=== PATIENT | female | born 1950 | race Caucasian/White ===

== ENCOUNTER → 2016-10-22 | Outpatient (CLI) | payer MEDICARE, MEDICAID ==
--- NOTE | 2016-10-22 15:47 | MRI ---
EXAM DESCRIPTION: Lumbar Spine w/o Contrast CLINICAL HISTORY: BACK PAIN COMPARISON: None Available. TECHNIQUE: MRI of the lumbar spine is performed according to our usual protocol with axial and sagittal multi sequence imaging. FINDINGS: There is good alignment of the lumbar spine. There is no vertebral pathology. L1-2: the disc is well hydrated. There is no loss of height. There is no bulging. The facets are unremarkable with no significant hypertrophy. There is no stenosis or impingement. L2-3: Minor desiccation and narrowing of the disc. Minor annular bulging. Facets unremarkable. There is no stenosis or impingement. L3-4: Minor disc desiccation and narrowing with minimal annular bulging slightly exaggerated to the left. There is an annular tear posterolaterally on the left. Minor facet hypertrophy. There is no stenosis or impingement. L4-5: Early disc desiccation with moderate disc narrowing and broad 2 to 3 mm disc bulge with posterior central midline annular tear. Severe bilateral facet and ligament hypertrophy producing severe multifactorial spinal stenosis with the AP diameter of the canal measuring 5 to 6 mm in AP and transverse diameter. L5-S1: Early narrowing and desiccation of the disc with minor annular bulging. Posterior midline annular tear. Moderate facet arthropathy with hypertrophy. There is no stenosis or impingement. IMPRESSION: 1. Severe multifactorial spinal stenosis L4-5 2. Multilevel lumbar spondylosis as described Electronically signed by: Peng Nickerson MD 10/22/2016 3:46 PM CDT
== END | disposition home or self-care (01) ==
LOC: MRI 08:42
PROVIDERS: ATTEND Emergency Medicine
DX: M48.06 Spinal stenosis, lumbar region (principal); M47.896 Other spondylosis, lumbar region

== ENCOUNTER 2018-03-01 11:21 | Emergency (ER) | payer MEDICARE, MEDICAID ==
[2018-03-01 11:40] VITALS: TEMP 97.1
[2018-03-01] MEDS ORDERED: AMOXICILLIN & POT CLAVULANATE 875 MG TAB PO ONE (11:49)
[2018-03-01] MEDS ORDERED: TETANUS,DIPHTHERIA,PERTUSSIS 1 EA SYG IM ONE (11:49)
[2018-03-01] MEDS ORDERED: AZITHROMYCIN 250 MG TAB PO ONE (11:49)
--- NOTE | 2018-03-01 11:55 | ED.PDOC ---
History of Present Illness - General Chief Complaint: Skin/Abrasion/Tear Stated Complaint: red,swollen right arm Time Seen by Provider: 03/01/18 11:46 Source: patient Exam Limitations: no limitations - History of Present Illness Initial Comments: the patient is a 68-year-old female presenting to the emergency room secondary to cellulitis of her right dorsal forearm. Her cat bit her 2 days ago. She has extending cellulitis surrounding that. No obvious area to drain. It does not extend past the elbow at this time. No limitation of function. She did have some fever last night along with some mild nausea. No syncope or near syncope. She reports that she thinks she had a penicillin allergy as a child but she has been able to take amoxicillin in the past. She is currently undergoing chemotherapy for some form of a neck cancer. Timing/Duration: other - 48 hours Severity: moderate Improving Factors: nothing Worsening Factors: nothing Associated Symptoms: malaise Allergies/Adverse Reactions: Allergies Penicillins Allergy (Verified 03/01/18 11:40) Home Medications: Ambulatory Orders Amoxicillin & Pot Clavulanate [Augmentin Tab] 875 mg PO BID #20 tab 03/01/18 Azithromycin 250 mg PO DAILY #5 tab 03/01/18 Bacitracin (Topical) [Bacitracin] 500 unit EX DAILY 03/01/18 Carisoprodol [Soma] 350 mg PO Q6H PRN 03/01/18 Dexamethasone 20 mg PO PRN 03/01/18 Docusate Sodium [Stool Softener] 100 mg PO DAILY PRN 03/01/18 Gabapentin 300 mg PO TID 03/01/18 Meloxicam [Vivlodex] 10 mg PO DAILY 03/01/18 Methadone HCl 20 mg PO Q12H 03/01/18 Oxycodone HCl 10 mg PO Q4H PRN 03/01/18 fentaNYL PATCH 100 MCG/HR [Duragesic Patch 100 MCG/HR] 100 mcg TD Q72H 03/01/18 Review of Systems - Review of Systems Constitutional: States: fever, malaise, weakness EENTM: States: no symptoms reported Respiratory: States: no symptoms reported Cardiology: States: no symptoms reported Gastrointestinal/Abdominal: States: nausea Genitourinary: States: no symptoms reported Musculoskeletal: States: no symptoms reported Skin: States: see HPI Neurological: States: no symptoms reported Endocrine: States: no symptoms reported All other Systems: No Change from Baseline Past Medical History (General) - Patient Medical History Hx Stroke: No Hx Congestive Heart Failure: No Hx Diabetes: No Hx Hepatitis C: Yes - recently diagnosed - Vaccination History Hx Influenza Vaccination: Yes Hx Pneumococcal Vaccination: Yes - Social History Hx Tobacco Use: Yes Family Medical History - Family History Mother Family History: Unknown Living Status: Unknown Physical Exam - Physical Exam General Appearance: Alert, No apparent distress Eye Exam: bilateral normal Ears, Nose, Throat: hearing grossly normal Neck: other - chronic changes from previous surgery. She thinks there is a little more swelling to the left side of her neck over the last 2 or 3 days but she is uncertain Respiratory: lungs clear, normal breath sounds, no respiratory distress, no accessory muscle use Cardiovascular/Chest: normal peripheral pulses, no edema, other - regular rate Peripheral Pulses: radial,right: 2+, radial,left: 2+, dorsalis pedis,right: 2+, dorsalis pedis,left: 2+ Gastrointestinal/Abdominal: non tender, soft Rectal Exam: deferred Extremity: normal range of motion, no pedal edema, no calf tenderness, normal capillary refill, other - pain to the right forearm where the cellulitis is. PICC line is in place in the right upper arm. Neurologic: riveter hand II-XII nml as tested, alert, normal mood/affect, oriented x 3 Skin Exam: other - cellulitis of the right dorsal forearm. Comments: Vital Signs - 24 hr 03/01/18 11:36 Temperature 97.1 F L Pulse Rate [ 89 Left Brachial] Respiratory 16 Rate Blood Pressure 126/78 [Left Arm] O2 Sat by Pulse 94 L Oximetry Progress - Progress Progress: 03/01/18 11:56 the patient is a 68-year-old female presenting secondary to cellulitis of the right dorsal forearm where her cat bit her 2 days ago. There is no evidence of any abscess formation. She is uncertain of her tetanus status. She has been able to take amoxicillin in the past. The patient is going to be placed on Augmentin and azithromycin for the cellulitis. A blood culture is being performed in case she fails to respond to this treatment. ER warnings were given for any worsening. She does need to take these antibiotics with food to prevent stomach upset. She needs to keep herself well hydrated. ER warnings were given. I would recommend that she follow-up with her primary care doctor early next week. Departure - Departure Clinical Impression: Cat bite Qualifiers: Encounter type: initial encounter Qualified Code(s): W55.01XA - Bitten by cat, initial encounter Cellulitis Qualifiers: Site of cellulitis: extremity Site of cellulitis of extremity: upper extremity Laterality: right Qualified Code(s): L03.113 - Cellulitis of right upper limb Disposition: Discharge to Home or Self Care Condition: Fair Departure Forms: ED Discharge - Pt. Copy, Patient Portal Self Enrollment Instructions: DI for Wound Infection Diet: regular diet Activity: increase activity as tolerated Referrals: JAN HILLMAN [Primary Care Provider] - 1-5 Days Prescriptions: Amoxicillin & Pot Clavulanate [Augmentin Tab] 875 mg PO BID #20 tab Azithromycin 250 mg PO DAILY #5 tab Home Medications: Ambulatory Orders Amoxicillin & Pot Clavulanate [Augmentin Tab] 875 mg PO BID #20 tab 03/01/18 Azithromycin 250 mg PO DAILY #5 tab 03/01/18 Bacitracin (Topical) [Bacitracin] 500 unit EX DAILY 03/01/18 Carisoprodol [Soma] 350 mg PO Q6H PRN 03/01/18 Dexamethasone 20 mg PO PRN 03/01/18 Docusate Sodium [Stool Softener] 100 mg PO DAILY PRN 03/01/18 Gabapentin 300 mg PO TID 03/01/18 Meloxicam [Vivlodex] 10 mg PO DAILY 03/01/18 Methadone HCl 20 mg PO Q12H 03/01/18 Oxycodone HCl 10 mg PO Q4H PRN 03/01/18 fentaNYL PATCH 100 MCG/HR [Duragesic Patch 100 MCG/HR] 100 mcg TD Q72H 03/01/18 Additional Instructions: the patient is a 68-year-old female presenting secondary to cellulitis of the right dorsal forearm where her cat bit her 2 days ago. There is no evidence of any abscess formation. She is uncertain of her tetanus status. She has been able to take amoxicillin in the past. The patient is going to be placed on Augmentin and azithromycin for the cellulitis. A blood culture is being performed in case she fails to respond to this treatment. ER warnings were given for any worsening. She does need to take these antibiotics with food to prevent stomach upset. She needs to keep herself well hydrated. ER warnings were given. I would recommend that she follow-up with her primary care doctor early next week.
[2018-03-01 12:19] VITALS: BP 119/70; O2SAT 96
== END 2018-03-01 12:29 | disposition home or self-care (01) ==
LOC: ER 11:21
DX: S51.851A Open bite of right forearm, initial encounter (principal); L03.113 Cellulitis of right upper limb; Z23 Encounter for immunization; C76.0 Malignant neoplasm of head, face and neck; B19.20 Unspecified viral hepatitis C without hepatic coma; Z79.899 Other long term (current) drug therapy; W55.01XA Bitten by cat, initial encounter; Y92.9 Unspecified place or not applicable
CPT/HCPCS: 36415; 87040; 90471; 90715; Q0144

== ENCOUNTER 2018-05-25 19:56 | Emergency (ER) | payer MEDICARE, MEDICAID ==
--- NOTE | 2018-05-25 20:30 | RAD ---
EXAM DESCRIPTION: Chest,1 View CLINICAL HISTORY:68 years Female, left chest, neck pain, 2d after chemo Comparison: None FINDINGS: No focal lung consolidation. No pleural effusion. No pneumothorax. Cardiac and mediastinal silhouette is unremarkable. No acute osseous abnormality. Aortic calcifications. Soft tissues are unremarkable. IMPRESSION: No acute findings. No focal lung consolidation. Electronically signed by: Gal Cano MD 05/25/2018 8:29 PM CDT
[2018-05-25] MEDS ORDERED: DEXAMETHASONE INJ 10 MG/ML VIAL IM ONE (21:34)
[2018-05-25] MEDS ORDERED: cefTRIAXone SODIUM 1 GM VIAL IM ONE (21:34)
[2018-05-25] MEDS ORDERED: diazePAM 5 MG TAB PO ONE (21:34)
[2018-05-25] MEDS ORDERED: LIDOCAINE 1% 2 ML VIAL INJ ONE (21:44)
--- NOTE | 2018-05-25 22:15 | ED.PDOC ---
History of Present Illness - General Chief Complaint: Neck Injury/Pain Stated Complaint: neck pain Time Seen by Provider: 05/25/18 20:00 Source: patient Exam Limitations: no limitations - History of Present Illness Initial Comments: the patient is a 68-year-old female presenting to the emergency room secondary to couple of days of malaise along with tightening of the musculature to the left side of her neck as well as several episodes of nausea and vomiting. The patient is currently undergoing chemotherapy for cancer of the head and neck. She had her last chemotherapy treatment 2 days ago. After that she started experiencing some nausea and vomiting. No syncope. She has tolerated the majority of her oral intake over the last couple of days however. She is primarily here secondary to the neck symptoms. No altered mental status. The patient is pleasant and cooperative. She is uncertain what kind of chemotherapy she is on an uncertain if she having steroids prior or after. no fevers, sore throat, runny nose or shortness of breath. No chest pain otherwise. No syncope or near syncope. No diarrhea. Timing/Duration: unsure - 48 hours Severity: moderate Improving Factors: nothing Worsening Factors: nothing Associated Symptoms: malaise, nausea/vomiting Allergies/Adverse Reactions: Allergies Penicillins Allergy (Verified 03/01/18 11:40) Home Medications: Ambulatory Orders Amoxicillin & Pot Clavulanate [Augmentin Tab] 875 mg PO BID #20 tab 03/01/18 Azithromycin 250 mg PO DAILY #5 tab 03/01/18 Bacitracin (Topical) [Bacitracin] 500 unit EX DAILY 03/01/18 Carisoprodol [Soma] 350 mg PO Q6H PRN 03/01/18 Dexamethasone 20 mg PO PRN 03/01/18 Docusate Sodium [Stool Softener] 100 mg PO DAILY PRN 03/01/18 Gabapentin 300 mg PO TID 03/01/18 Meloxicam [Vivlodex] 10 mg PO DAILY 03/01/18 Methadone HCl 20 mg PO Q12H 03/01/18 Oxycodone HCl 10 mg PO Q4H PRN 03/01/18 fentaNYL PATCH 100 MCG/HR [Duragesic Patch 100 MCG/HR] 100 mcg TD Q72H 03/01/18 Cyclobenzaprine HCl [Flexeril] 5 mg PO TID PRN #30 tab 05/25/18 Dexamethasone 4 mg PO DAILY #3 tab 05/25/18 Levofloxacin [Levaquin] 250 mg PO DAILY #5 tablet 05/25/18 Review of Systems - Review of Systems Constitutional: States: malaise EENTM: States: no symptoms reported Respiratory: States: no symptoms reported Cardiology: States: chest pain - left upper Gastrointestinal/Abdominal: States: nausea, vomiting Genitourinary: States: no symptoms reported Musculoskeletal: States: neck pain - chronic Skin: States: no symptoms reported Neurological: States: no symptoms reported Endocrine: States: no symptoms reported All other Systems: No Change from Baseline Past Medical History (General) - Patient Medical History Hx Stroke: No Hx Congestive Heart Failure: No Hx Diabetes: No Hx Cancer: Yes - neck/head Hx Hepatitis C: Yes - recently diagnosed - Vaccination History Hx Influenza Vaccination: Yes Hx Pneumococcal Vaccination: Yes - Social History Hx Tobacco Use: Yes - Female History Patient is a Female of Child Bearing Age (10 -59 yrs old): No - Triage Comment ED Triage Comment: Had numerous lymph nodes removed in left side of neck, been painful since but worse today Family Medical History - Family History Mother Family History: Unknown Living Status: Unknown Physical Exam - Physical Exam General Appearance: Alert, No apparent distress Eye Exam: bilateral normal Ears, Nose, Throat: normal ENT inspection, normal pharynx Neck: other - the left anterior lateral aspect of her neck extending down the upper chest wall is somewhat sore to palpation. There is no erythema. No fluctuance. No torticollis. Respiratory: lungs clear, normal breath sounds, no respiratory distress, no accessory muscle use Cardiovascular/Chest: normal peripheral pulses, regular rate, rhythm, no edema Peripheral Pulses: radial,right: 2+, radial,left: 2+, dorsalis pedis,right: 2+, dorsalis pedis,left: 2+ Gastrointestinal/Abdominal: non tender, soft Rectal Exam: deferred Extremity: normal range of motion, no pedal edema, no calf tenderness, normal capillary refill Neurologic: newspaper illustrator II-XII nml as tested, alert, normal mood/affect - affect is fairly flat otherwise normal, oriented x 3 Skin Exam: normal color Comments: Vital Signs - 8 hr 05/25/18 20:19 Temperature 97.3 F L Pulse Rate [ 82 Left] Respiratory 18 Rate Blood Pressure 151/89 [Left Arm] O2 Sat by Pulse 97 Oximetry Progress - Progress Progress: 05/25/18 22:18 the patient is a 68-year-old female presenting to the emergency room secondary to some pain and mild muscle spasm to the left anterior neck a couple of days after chemotherapy. The patient has controlled her nausea with her medications at home. The patient received a dose of muscle relaxer here which has helped her symptoms significantly along with a dose of dexamethasone. Laboratory work and imaging did not indicate any infection at this time. blood culture was performed. The patient needs to keep herself well hydrated. She is going to be written for 3 days of dexamethasone at 4 mg daily and Levaquin 250 mg daily for the next 5 days in case this is the start of an infectious process, given the fact that she is on chemotherapy. She needs to contact her oncologist tomorrow morning and let them know what is going on, so that they can make any adjustments if they wish. ER warnings were given. - Results/Orders Results/Orders: 05/25/18 20:15 BLOOD CULTURE Stat chest x-ray shows no acute pathology. 05/26/18 20:15 EKG STAT EKG shows normal sinus rhythm at a rate of 85 bpm. Mild right axis deviation. Possible poor R-wave progression with possible lead reversal. No definitive ST segment changes or T wave changes consistent with ischemia. Normal QT interval. Background interference is significant. Laboratory Results - last 24 hr 05/25/18 05/25/18 05/25/18 20:14 20:14 20:15 WBC 6.8 RBC 3.75 L Hgb 12.2 Hct 36.6 MCV 97.6 MCH 32.5 H MCHC 33.3 RDW 16.2 H Plt Count 297 MPV 7.5 Absolute Neuts (auto) 5.90 Absolute Lymphs (auto) 0.40 L Absolute Monos (auto) 0.10 L Absolute Eos (auto) 0.30 Absolute Basos (auto) 0.00 Neutrophils % 86.9 H Lymphocytes % 6.5 L Monocytes % 1.6 L Eosinophils % 4.3 Basophils % 0.7 PT INR PTT (SP) Sodium 136 Potassium 3.8 Chloride 101 Carbon Dioxide 27 Anion Gap 11.8 L BUN 8 Creatinine 0.42 L BUN/Creatinine Ratio 19.0 Random Glucose 107 H Serum Osmolality 270.8 L Lactic Acid 0.9 Uric Acid Calcium 9.0 Magnesium Total Bilirubin 0.6 AST 22 ALT 13 Alkaline Phosphatase 74 LD Total Creatine Kinase 31 CK-MB (CK-2) 1.0 CK-MB (CK-2) % Not Reportable Troponin I < 0.02 Serum Total Protein 6.8 Albumin 3.1 L Globulin 3.7 H Albumin/Globulin Ratio 0.8 L 05/25/18 05/25/18 20:15 20:15 WBC RBC Hgb Hct MCV MCH MCHC RDW Plt Count MPV Absolute Neuts (auto) Absolute Lymphs (auto) Absolute Monos (auto) Absolute Eos (auto) Absolute Basos (auto) Neutrophils % Lymphocytes % Monocytes % Eosinophils % Basophils % PT 10.5 INR 1.05 PTT (SP) 29.4 Sodium Potassium Chloride Carbon Dioxide Anion Gap BUN Creatinine BUN/Creatinine Ratio Random Glucose Serum Osmolality Lactic Acid Uric Acid 5.1 Calcium Magnesium 1.9 Total Bilirubin AST ALT Alkaline Phosphatase LD Total 150 Creatine Kinase CK-MB (CK-2) CK-MB (CK-2) % Troponin I Serum Total Protein Albumin Globulin Albumin/Globulin Ratio Departure - Departure Clinical Impression: Cervical paraspinal muscle spasm Adverse effect of chemotherapy Qualifiers: Encounter type: initial encounter Qualified Code(s): T45.1X5A - Adverse effect of antineoplastic and immunosuppressive drugs, initial encounter Disposition: Discharge to Home or Self Care Condition: Fair Departure Forms: ED Discharge - Pt. Copy, Patient Portal Self Enrollment Diet: regular diet Activity: increase activity as tolerated Referrals: JAN HILLMAN [Primary Care Provider] - 1-2 Weeks Prescriptions: Cyclobenzaprine HCl [Flexeril] 5 mg PO TID PRN #30 tab PRN Reason: Muscle Spasms Dexamethasone 4 mg PO DAILY #3 tab Levofloxacin [Levaquin] 250 mg PO DAILY #5 tablet Home Medications: Ambulatory Orders Amoxicillin & Pot Clavulanate [Augmentin Tab] 875 mg PO BID #20 tab 03/01/18 Azithromycin 250 mg PO DAILY #5 tab 03/01/18 Bacitracin (Topical) [Bacitracin] 500 unit EX DAILY 03/01/18 Carisoprodol [Soma] 350 mg PO Q6H PRN 03/01/18 Dexamethasone 20 mg PO PRN 03/01/18 Docusate Sodium [Stool Softener] 100 mg PO DAILY PRN 03/01/18 Gabapentin 300 mg PO TID 03/01/18 Meloxicam [Vivlodex] 10 mg PO DAILY 03/01/18 Methadone HCl 20 mg PO Q12H 03/01/18 Oxycodone HCl 10 mg PO Q4H PRN 03/01/18 fentaNYL PATCH 100 MCG/HR [Duragesic Patch 100 MCG/HR] 100 mcg TD Q72H 03/01/18 Cyclobenzaprine HCl [Flexeril] 5 mg PO TID PRN #30 tab 05/25/18 Dexamethasone 4 mg PO DAILY #3 tab 05/25/18 Levofloxacin [Levaquin] 250 mg PO DAILY #5 tablet 05/25/18 Additional Instructions: the patient is a 68-year-old female presenting to the emergency room secondary to some pain and mild muscle spasm to the left anterior neck a couple of days after chemotherapy. The patient has controlled her nausea with her medications at home. The patient received a dose of muscle relaxer here which has helped her symptoms significantly along with a dose of dexamethasone. Laboratory work and imaging did not indicate any infection at this time. blood culture was performed. The patient needs to keep herself well hydrated. She is going to be written for 3 days of dexamethasone at 4 mg daily and Levaquin 250 mg daily for the next 5 days in case this is the start of an infectious process, given the fact that she is on chemotherapy. She needs to contact her oncologist tomorrow morning and let them know what is going on, so that they can make any adjustments if they wish. ER warnings were given.
[2018-05-25 22:38] VITALS: O2SAT 96
[2018-05-25 22:39] VITALS: BP 133/80; TEMP 98.1
== END 2018-05-25 22:39 | disposition home or self-care (01) ==
LOC: ER 19:56
DX: M62.838 Other muscle spasm (principal); T45.1X5A Adverse effect of antineoplastic and immunosuppressive drugs, initial encounter; R11.2 Nausea with vomiting, unspecified; C76.0 Malignant neoplasm of head, face and neck; C79.89 Secondary malignant neoplasm of other specified sites; B19.20 Unspecified viral hepatitis C without hepatic coma; Z98.890 Other specified postprocedural states; Z79.899 Other long term (current) drug therapy; Z88.0 Allergy status to penicillin
CPT/HCPCS: 36415; 71045; 80053; 82550; 82553; 83605; 83615; 83735; 84484; 84550; 85025; 85610; 85730; J0696; J1100